=== PATIENT | female | born 1965 | race African-American/Black ===

== ENCOUNTER 2019-04-24 08:00 | Inpatient (IN) | payer OTHER ==
[2019-05-19] MEDS ORDERED: PHENAZOPYRIDINE HCL 100 MG TABLET (FP) PO ONE ×2 (08:08)
[2019-05-19 10:12] VITALS: BMI 30.7
--- NOTE | 2019-05-19 11:01 | HP ---
History & Physical Update - History History: No Change - Physical Physical: No Change - Assessment Assessment: No Change - Plan Plan: No Change
[2019-05-19] MEDS ORDERED: CEFAZOLIN 2 GM/D5W 2 GM/50 ML ML IVPB ONE (11:02)
[2019-05-19] MEDS ORDERED: ceFAZolin SODIUM 1 GM VIAL IVPB ONE (11:55)
[2019-05-19] MEDS ORDERED: FLU VACCINE QUAD 60 MCG/0.5 ML (MDV 19-20) IM ONE (12:00)
[2019-05-19] MEDS ORDERED: ONDANSETRON 4 MG/2 ML VIAL IVPUSH PRN ×2 (13:50→13:58)
[2019-05-19] MEDS ORDERED: BISACODYL 5 MG TABLET.DR (FP) PO ONE (13:50)
[2019-05-19] MEDS ORDERED: ACETAMINOPHEN 1000 MG/100 ML VIAL (NON FORMULARY) IVPB ONE ×2 (13:55→14:00)
[2019-05-19] MEDS ORDERED: DEXAMETHASONE SOD PHOSPHATE 4 MG/1 ML VIAL IVPUSH ONE (13:58)
[2019-05-19] MEDS ORDERED: HYDROmorphone *PCA* 10MG/50ML DISP.SYRIN PCA SCH (14:00)
--- NOTE | 2019-05-19 14:01 | OP ---
Operative Note - Note: Operative Date: 05/19/19 Pre-Operative Diagnosis: leiomyoma Operation: open abdpminal hysterectomy and bilateral salpingectomy 05/19 Surgeon: Ruma Martinez Clinical Trials Specialist: Kristel Jha Anesthesiologist/TRANSMISSION CALIBRATION ENGINEER: Brooklynn Bojorquez MD Anesthesia: General Specimens Removed: uterus with cervix and bilateral salpingnx Estimated Blood Loss (mls): 200 Drains, Volume Out (mls): 225 (mayo) Fluid Volume Replaced (mls): 1,000 Operative Report Dictated: Yes
--- NOTE | 2019-05-19 14:26 | OP ---
Operative Note - Note: Operative Date: 05/19/19 Pre-Operative Diagnosis: Leiomyomaatous Uterus. Adenomyosis. Subserosal myoma Operation: Total Abdominal Hysterectomy. Bilateral Salpingectomy Findings: 23 cm leiomyomatous uterus with adenomyosis Post-Operative Diagnosis: Same as Pre-op Surgeon: Ruma Martinez Station Engineer: Kristel Jha Anesthesia: General Estimated Blood Loss (mls): 150 Operative Report Dictated: Yes
[2019-05-19] MEDS ORDERED: HYDROmorphone *PCA* 10MG/50ML DISP.SYRIN PCA ONE (14:40)
[2019-05-19] MEDS ORDERED: ALBUTEROL SO4 0.083% IH SOL 2.5 MG/3 ML VIAL.NEB. NEB ONE ×2 (15:00→15:01)
--- NOTE | 2019-05-19 17:26 | OP ---
DATE OF OPERATION: 05/19/2019 PREOPERATIVE DIAGNOSIS: Leiomyomatous uterus, adenomyosis, submucosal myoma. OPERATION: Total abdominal hysterectomy and bilateral salpingectomy. POSTOPERATIVE DIAGNOSIS: Leiomyomatous uterus, adenomyosis, submucosal myoma. SURGEON: Ruma Martinez MD AUTOMATED PROCESS OPERATOR: MARIA LUZ Resendiz ANESTHESIA: General. FINDINGS: Uterus approximately 23-24 weeks in size with multiple myomas and adenomyosis. ESTIMATED BLOOD LOSS: 150 mL. DESCRIPTION OF PROCEDURE: Patient was taken to the operating room, placed in the supine position, prepped and draped in the usual sterile fashion. Time-out was performed in accordance with hospital regulation. Pfannenstiel skin incision was made with the scalpel. Cautery was then used to go through layers of abdominal wall to the level of the fascia. Fascia was cut in the midline, and cautery was then used to open the fascia in smiling fashion. Kochers were then used to bluntly, sharply dissect the rectus muscle off the fascia. Muscle was split in the midline. Peritoneal cavity was then entered. Very large leiomyomatous uterus approximately 22-23 weeks in size was exteriorized from the abdomen. Tubes and ovaries were noted to be normal. Attention was then drawn to the LigaSure where the utero-ovarian ligament was identified and clamped and cut. Round ligament was identified and clamped and cut all on the left side. Vesicouterine reflection was then entered, and bladder was bluntly dissected out of the operative field. Uterine arteries were identified and clamped and cut. Using LigaSure, cardinal ligaments were identified, clamped, and cut down to the level of the cervix. The vagina was then entered using a scalpel. Same procedure was repeated on the other side. Round ligament was identified and clamped and cut. Utero-ovarian ligament was identified and clamped and cut. Uterine artery identified, clamped, and cut. Cardinal ligament was identified, clamped, and cut down to the level of the cervix. The Zee were then used to cut the vagina away from the cervix, 2-0 V-Lock suture was then used to close the vaginal cuff in a continuous fashion. The specimen was submitted to Pathology. Bilateral tubes were removed using LigaSure and given to Pathology. All pedicles were checked. A small piece of Interceed was placed over the cuff. Hemostasis was achieved. Peritoneum was then closed using 2-0 Vicryl suture after pad count was noted to be done, abdominal sweep done. Fascia was then closed using 0 Vicryl suture in 2 parts. Muscles had been approximated in the midline using 0 Vicryl suture. Subcutaneous was then closed with interrupted using 2-0 Vicryl suture, and 3-0 Biosyn was then used to close the incision in subcuticular fashion. Wound was washed and dressed. Patient tolerated procedure well. Estimated blood loss 150 mL. Madhavi [id number]
[2019-05-19 19:47] LABS: HEMOGLOBIN 10.4 GM/dL (10.7-15.3); MCH 22.9 pg (25.7-33.7); MCHC 30.7 g/dl (32.0-36.0); MEAN CELL VOLUME 74.6 fl (80-96); MEAN PLT VOLUME 8.8 fl (7.5-11.1); PLATELET COUNT 180 K/MM3 (134-434); RBC 4.56 M/mm3 (3.60-5.2); RDW 31.4 % (11.6-15.6); WHITE BLOOD COUNT 20.1 K/mm3 (4.0-10.0)
[2019-05-19] MEDS: ACETAMINOPHEN 1000 MG/100 ML VIAL (NON FORMULARY) IVPB SCH (20:00)
[2019-05-19 20:12] LABS: BLOOD UREA NITROGEN 13.5 mg/dL (7-18); CALCIUM 9.2 mg/dL (8.5-10.1); CREATININE 0.8 mg/dL (0.55-1.3); POTASSIUM 3.5 mmol/L (3.5-5.1)
[2019-05-19] MEDS: CEFAZOLIN 1 GM in DEXTROSE 5%-WATER - 50 ML IVPB SCH (21:00)
[2019-05-19 21:52] LABS: ANISOCYTOSIS 2+
[2019-05-19 21:53] LABS: OVALOCYTE 1+; PLATELET ESTIMATE ADEQUATE; TARGET CELLS 1+
[2019-05-19] MEDS ORDERED: IBUPROFEN 800 MG/8 ML IJ IVPB PRN (22:00)
[2019-05-20] MEDS: ACETAMINOPHEN 1000 MG/100 ML VIAL (NON FORMULARY) IVPB SCH ×2 (02:00→06:03)
[2019-05-20] MEDS: CEFAZOLIN 1 GM in DEXTROSE 5%-WATER - 50 ML IVPB SCH (03:00)
--- NOTE | 2019-05-20 08:19 | PN ---
Progress Note (short form) - Note Progress Note: Surgery POD #1 open abdpminal hysterectomy and bilateral salpingectomy patient seen and examined at bedside. She has not been OOB yet and the mayo catheter is still in. Her pain is controlled and she denies any CP, SOB, N/V, Fever or chills. Vital Signs Temp 98.5 F 05/20/ 05:36 Pulse 67 05/20/19 05:36 Resp 18 05/20/19 05:36 BP 144/75 05/20/19 05:36 Pulse Ox 96 05/19/19 21:00 Intake & Output 05/19/19 05/19/19 05/20/19 11:59 23:59 11:59 Intake Total 1398 487 6713 Output Total 1675 800 Balance 1000 -1125 975 Weight 176 lb Intake: IV 1236 576 9462 Lactated Ringers Solution 1125 1,000 ml @ 125 mls/hr IV ASDIR DORCAS Rx#: [id number] IVPB 50 150 Oral 250 500 Output: Urine 1475 800 Mayo 200 800 Estimated Blood Loss 200 Other: Voiding Method Indwelling Catheter Height 5 ft 3.5 in Body Mass Index (BMI) 30.7 Weight Measurement Method Stated by Patient CBC, BMP 05/20/19 07:43 05/20/19 07:43 PE: A&Ox3, NAD Unlabored resp on RA ABD: Soft, ND, NT, Incision C/D/I with seri strips, surrounding tissue intact with no tracking erythema or active d/c. Problem List - Problems (1) S/P hysterectomy Assessment/Plan: POD #1 patient doing well. WBC's trending down and afebrile. -remove mayo now -advance diet as ordered -OOB as tolerated -AM labs -encourage IS -DVT prophylaxis with b/l scds and lovenox -d/c planning for home tomorrow Code(s): Z90.710 - ACQUIRED ABSENCE OF BOTH CERVIX AND UTERUS (2) S/P abdominal hysterectomy and left salpingo-oophorectomy Code(s): Z90.710 - ACQUIRED ABSENCE OF BOTH CERVIX AND UTERUS; Z90.721 - ACQUIRED ABSENCE OF OVARIES, UNILATERAL; Z90.79 - ACQUIRED ABSENCE OF OTHER GENITAL ORGAN(S) (3) S/P abdominal hysterectomy and right salpingo-oophorectomy Code(s): Z90.710 - ACQUIRED ABSENCE OF BOTH CERVIX AND UTERUS; Z90.721 - ACQUIRED ABSENCE OF OVARIES, UNILATERAL; Z90.79 - ACQUIRED ABSENCE OF OTHER GENITAL ORGAN(S)
[2019-05-20 08:26] LABS: BLOOD UREA NITROGEN 11.1 mg/dL (7-18); CALCIUM 8.5 mg/dL (8.5-10.1); CREATININE 0.8 mg/dL (0.55-1.3)
[2019-05-20 08:42] LABS: HEMATOCRIT 29.6 % (32.4-45.2); HEMOGLOBIN 9.4 GM/dL (10.7-15.3); MCH 23.3 pg (25.7-33.7); MCHC 31.6 g/dl (32.0-36.0); MEAN CELL VOLUME 73.7 fl (80-96); MEAN PLT VOLUME 8.9 fl (7.5-11.1); PLATELET COUNT 142 K/MM3 (134-434); RBC 4.02 M/mm3 (3.60-5.2); RDW 31.4 % (11.6-15.6); WHITE BLOOD COUNT 16.6 K/mm3 (4.0-10.0)
--- NOTE | 2019-05-20 08:57 | PN ---
Progress Note (short form) - Note Progress Note: Anesthesia postop note 54 y/o F s/p GA for HARPREET, TAP blocks and chemical etch operator for postop pain management. POD#1, vss, aaox3, pain well controlled, no complaints. Will continue the chemical etch operator for now. No anesthesia complications.
[2019-05-20] MEDS ORDERED: FLU VACC QS2019-20(6MOS UP)/PF 60 MCG/0.5 ML SYRINGE IM ONE (09:00)
[2019-05-20] MEDS: HYDROCHLOROTHIAZIDE 25 MG TABLET (FP) PO SCH (09:35)
[2019-05-20] MEDS: NEBIVOLOL 10 MG TABLET (FP) PO SCH (09:35)
[2019-05-20] MEDS ORDERED: FLU VACCINE QUAD 60 MCG/0.5 ML (MDV 19-20) IM ONE (10:00)
[2019-05-20] MEDS ORDERED: PATIENT'S OWN MEDICATION (NON-FORMULARY) (Azilsartan Medoxomil [Edarbi] 80 MG) PO SCH (10:00)
[2019-05-20] MEDS: ENOXAPARIN NA (PORCINE) 40 MG/0.4 ML DISP.SYRIN SQ SCH (10:23)
--- NOTE | 2019-05-20 10:27 | SURG ---
Surgery Cutting Machine Tender Note Cutting Machine Tender: Kristel Jha PA-C Date of Service: 05/20/19 Diagnosis: leiomyoma Procedure: open abdpminal hysterectomy and bilateral salpingectomy 05/19 I was present for the entirety of the operative procedure. For further detail, please refer to operative report. Visit type - Case Type Case Type: Scheduled - Emergency Emergency Visit: No - New patient This patient is new to me today: Yes Date on this admission: 05/19/19
[2019-05-20] MEDS ORDERED: PCA PUMP KEY 1 EACH EACH ONE (13:37)
[2019-05-20] MEDS ORDERED: oxyCODONE HCL 5 MG TABLET PO PRN (16:18)
[2019-05-20] MEDS: SIMETHICONE 80 MG TAB.CHEW (FP) PO PRN (19:45)
[2019-05-20] MEDS: oxyCODONE HCL 5 MG TABLET PO PRN (19:45)
[2019-05-20] MEDS: ACETAMINOPHEN 325 MG TABLET (FP) PO PRN (19:46)
[2019-05-21] MEDS: SIMETHICONE 80 MG TAB.CHEW (FP) PO PRN ×4 (00:11→21:28)
[2019-05-21] MEDS: ACETAMINOPHEN 325 MG TABLET (FP) PO PRN ×5 (00:11→21:27)
[2019-05-21] MEDS: oxyCODONE HCL 5 MG TABLET PO PRN ×5 (00:12→21:28)
[2019-05-21] MEDS: DOCUSATE SODIUM 100 MG CAPSULE (FP) PO PRN (06:21)
--- NOTE | 2019-05-21 09:32 | PN ---
Progress Note (short form) - Note Progress Note: POD#2 Pt states that she passed flatus overnight, tolerated a regular diet. Ambulating and voiding on her own. Scant vaginal bleeding. Some pain overnight which was relieved with narcotics. Vital Signs Period Temp Pulse Resp BP Sys/Banks Pulse Ox Last 24 Hr 98.1 F-99 F 64-69 18-20 112-137/56-70 GEN: A&0x3, NAD CV; RRR Lungs: CTA b/l ABD: Binder in place, inc c/d/i with steristrips. No drainage or erythema noted. LE: no calf tenderness or swelling noted b/l CBC, BMP 11/12/19 07:43 11/12/ 07:43 A/P: 54 yo female s/p open abdominal hysterectomy and bilateral salpingectomy Continue regular diet OOB and ambulate DVT ppx with SCDS/ TEDS check cbc today Plan for possible discharge today, if hhaving bowel function. D/w Dr. Martinez
[2019-05-21] MEDS: NEBIVOLOL 10 MG TABLET (FP) PO SCH (09:59)
[2019-05-21] MEDS: HYDROCHLOROTHIAZIDE 25 MG TABLET (FP) PO SCH (09:59)
[2019-05-21] MEDS: ENOXAPARIN NA (PORCINE) 40 MG/0.4 ML DISP.SYRIN SQ SCH (10:00)
[2019-05-21] MEDS ORDERED: oxyCODONE HCL 5 MG TABLET PO ONE (10:45)
[2019-05-21 11:01] LABS: BASO % 0.6 % (0-2.0); EOS % 1.5 % (0-4.5); HEMATOCRIT 30.3 % (32.4-45.2); HEMOGLOBIN 9.5 GM/dL (10.7-15.3); LYMPH % 7.6 % (8-40); MCH 23.5 pg (25.7-33.7); MCHC 31.4 g/dl (32.0-36.0); MEAN CELL VOLUME 74.7 fl (80-96); MEAN PLT VOLUME 8.7 fl (7.5-11.1); NEUT % 84.3 % (42.8-82.8); PLATELET COUNT 146 K/MM3 (134-434); RBC 4.05 M/mm3 (3.60-5.2); RDW 30.8 % (11.6-15.6); WHITE BLOOD COUNT 12.7 K/mm3 (4.0-10.0)
[2019-05-21] MEDS: LACTATED RINGERS SOLUTION 1,000 ML IV SCH (19:32)
[2019-05-21] MEDS: SODIUM CHLORIDE 1,000 ML IV SCH ×2 (19:35→19:40)
[2019-05-21] MEDS: ACETAMINOPHEN 1000 MG/100 ML VIAL (NON FORMULARY) IVPB SCH ×2 (19:38→19:40)
--- NOTE | 2019-05-22 00:39 | PN ---
Progress Note (short form) - Note Progress Note: Anesthesia/pain management follow up REPAIRER AND CHECKER was discontinued, patient doing well.
[2019-05-22] MEDS: oxyCODONE HCL 5 MG TABLET PO PRN ×2 (05:30→14:43)
[2019-05-22] MEDS: SIMETHICONE 80 MG TAB.CHEW (FP) PO PRN ×2 (05:30→15:08)
[2019-05-22] MEDS: ACETAMINOPHEN 325 MG TABLET (FP) PO PRN ×2 (05:31→14:45)
--- NOTE | 2019-05-22 07:46 | DS ---
Physical Exam: SUBJECTIVE: Patient seen and examined OBJECTIVE: Vital Signs Temperature 98.4 F 05/21/19 20:50 Pulse Rate 67 05/21/19 20:50 Respiratory Rate 20 05/21/19 20:50 Blood Pressure 139/72 05/21/19 20:50 O2 Sat by Pulse Oximetry (%) 96 05/19/19 21:00 PHYSICAL EXAM GENERAL: The patient is awake, alert, and fully oriented, in no acute distress. HEAD: Normal with no signs of trauma. EYES: PERRL, extraocular movements intact, sclera anicteric, conjunctiva clear. ENT: Ears normal, nares patent, oropharynx clear without exudates, moist mucous membranes. NECK: Trachea midline, full range of motion, supple. LUNGS: Breathing comfortably no accessory muscle use. ABDOMEN: Soft, mild lower abd tenderness, nondistended, no guarding, no rebound , no hepatosplenomegaly, no masses. EXTREMITIES: warm, well-perfused, no edema. NEUROLOGICAL: Cranial nerves II through XII grossly intact. Normal speech, gait not observed. PSYCH: Normal mood, normal affect. SKIN: Warm, dry, normal turgor, no rashes or lesions noted. LABS CBC,CMP WBC 12.7 K/mm3 (4.0-10.0) H 05/21/19 10:35 RBC 4.05 M/mm3 (3.60-5.2) 05/21/19 10:35 Hgb 9.5 GM/dL (10.7-15.3) L 05/21/19 10:35 Hct 30.3 % (32.4-45.2) L 05/21/19 10:35 MCV 74.7 fl (80-96) L 05/21/19 10:35 MCH 23.5 pg (25.7-33.7) L 05/21/19 10:35 MCHC 31.4 g/dl (32.0-36.0) L 05/21/19 10:35 RDW 30.8 % (11.6-15.6) H 05/21/19 10:35 Plt Count 146 K/MM3 (134-434) 05/21/19 10:35 MPV 8.7 fl (7.5-11.1) 05/21/19 10:35 Absolute Neuts (auto) 10.7 K/mm3 (1.5-8.0) H 05/21/19 10:35 Neutrophils % 84.3 % (42.8-82.8) H 05/21/19 10:35 Neutrophils % (Manual) 78.0 % (42.8-82.8) 05/19/19 19:30 Band Neutrophils % 2.0 % 05/19/19 19:30 Lymphocytes % 7.6 % (8-40) L 05/21/19 10:35 Lymphocytes % (Manual) 13.0 % (8-40) 05/19/19 19:30 Monocytes % 6.0 % (3.8-10.2) 05/21/19 10:35 Monocytes % (Manual) 7 % (3.8-10.2) 05/19/19 19:30 Eosinophils % 1.5 % (0-4.5) 05/21/19 10:35 Basophils % 0.6 % (0-2.0) 05/21/19 10:35 Nucleated RBC % 0 % (0-0) 05/21/19 10:35 Hypochromia 2+ 05/19/19 19:30 Platelet Estimate Adequate 05/19/19 19:30 Anisocytosis 2+ 05/19/19 19:30 Microcytosis 2+ 05/19/19 19:30 Target Cells 1+ 05/19/19 19:30 Ovalocytes 1+ 05/19/19 19:30 Sodium 137 mmol/L (136-145) 05/20/19 07:43 Potassium 4.0 mmol/L (3.5-5.1) 05/20/19 07:43 Chloride 103 mmol/L (98-107) 05/20/19 07:43 Carbon Dioxide 30 mmol/L (21-32) 05/20/19 07:43 Anion Gap 4 MMOL/L (8-16) L 05/20/19 07:43 BUN 11.1 mg/dL (7-18) 05/20/19 07:43 Creatinine 0.8 mg/dL (0.55-1.3) 05/20/19 07:43 Est GFR (CKD-EPI)AfAm 95.52 05/20/19 07:43 Est GFR (CKD-EPI)NonAf 82.42 05/20/19 07:43 Random Glucose 97 mg/dL (74-106) 05/20/19 07:43 Calcium 8.5 mg/dL (8.5-10.1) 05/20/19 07:43 HOSPITAL COURSE: Date of Admission:05/19/19 Date of Discharge: 05/22/19 The patient was admitted to the Med-Surg Unit after an elective repair of her leiomyomas/pelvic pain. Now, s/p open abdominal hysterectomy. Pain management was achieved with a narcotic and non-narcotic oral and IV regimen. POD #1, the patient passed flatus and diet was advanced. Hemoglobin and hematocrit were monitored as well as vitals and remained stable throughout admission. Jennifer-operative IV ABX were administered. DVT prophylaxis was achieved with Lovenox 40mg qd, SCDs and early ambulation. The patient ambulated the halls without issue. Narcotic scripts were checked with [facility] prior to escribe. The discharge instructions and an oral pain management plan were reviewed with the patient. All questions answered. Above plan discussed with Dr. Martinez and agreed. Minutes to complete discharge: 20 Visit type - Case Type Case Type: Scheduled - Emergency Emergency Visit: No - New patient This patient is new to me today: No - Critical Care Critical Care patient: No
[2019-05-22] MEDS ORDERED: OXYTOCIN 30 UNITS in 0.9% NS 30 UNIT/500 ML INFUS.BAG IVPB SCH (08:30)
[2019-05-22] MEDS: HYDROCHLOROTHIAZIDE 25 MG TABLET (FP) PO SCH (10:28)
[2019-05-22] MEDS: ENOXAPARIN NA (PORCINE) 40 MG/0.4 ML DISP.SYRIN SQ SCH (10:28)
[2019-05-22] MEDS: NEBIVOLOL 10 MG TABLET (FP) PO SCH (10:28)
[2019-05-22 12:05] VITALS: BP 136/71; PULSE 60; TEMP 98.5
--- NOTE | 2019-05-22 14:39 | PN ---
Progress Note (SOAP) - Subjective Chief Complaint: Pt doing well + flatus no vaginal bleeding - Current Medications Current Medications: Active Medications Acetaminophen (Tylenol -) 650 mg PO Q6H PRN PRN Reason: PAIN LEVEL 1 - 3 Last Admin: 05/22/19 05:31 Dose: 650 mg Docusate Sodium (Colace -) 100 mg PO TID PRN PRN Reason: CONSTIPATION Last Admin: 05/21/19 06:21 Dose: 100 mg Enoxaparin Sodium (Lovenox -) 40 mg SQ DAILY [facility] Last Admin: 05/22/19 10:28 Dose: 40 mg Hydrochlorothiazide (Hctz -) 25 mg PO DAILY [facility] Last Admin: 05/22/19 10:28 Dose: 25 mg Nebivolol (Bystolic -) 10 mg PO DAILY [facility] Last Admin: 05/22/19 10:28 Dose: 10 mg Non-Formulary Medication (Azilsartan Medoxomil [Edarbi]) 80 mg PO DAILY [facility] Oxycodone HCl (Roxicodone -) 5 mg PO Q6H PRN PRN Reason: PAIN LEVEL 1-5 Last Admin: 05/22/19 05:30 Dose: 5 mg Oxycodone HCl (Roxicodone -) 10 mg PO Q6H PRN PRN Reason: PAIN LEVEL 6-10 Simethicone (Mylicon -) 80 mg PO Q4H PRN PRN Reason: GAS Last Admin: 05/22/19 05:30 Dose: 80 mg - Objective Vital Signs: Vital Signs Temperature 98.5 F 05/22/19 08:30 Pulse Rate 60 05/22/19 08:30 Respiratory Rate 18 05/22/19 08:30 Blood Pressure 136/71 05/22/19 08:30 O2 Sat by Pulse Oximetry (%) 96 05/19/19 21:00 Constitutional: Yes: Well Nourished Gastrointestinal: Yes: WNL, Soft Breast(s): Yes: WNL Musculoskeletal: Yes: WNL Extremities: Yes: WNL Edema: No Wound/Incision: Yes: Clean/Dry, Well Approximated, Steri Strips, Open to air Neurological: Yes: WNL, Alert, Oriented Labs Lab Results: CBC, BMP 05/21/19 10:35 05/20/19 07:43 Problem List - Problems (1) S/P abdominal hysterectomy and left salpingo-oophorectomy Code(s): Z90.710 - ACQUIRED ABSENCE OF BOTH CERVIX AND UTERUS; Z90.721 - ACQUIRED ABSENCE OF OVARIES, UNILATERAL; Z90.79 - ACQUIRED ABSENCE OF OTHER GENITAL ORGAN(S) Assessment/Plan Sp HARPREET bilateral salpingectomy POD3 doing well Plan DC home
[2019-05-22] MEDS: DOCUSATE SODIUM 100 MG CAPSULE (FP) PO PRN (14:43)
--- NOTE | 2019-05-23 17:55 | PATH ---
Surgical Pathology Report Patient Name: KARLY PHELPS [facility]. Rec. #: [id number] /Age/Gender: 1965 (Age: 54) / F Account: [id number] Location: [facility] Taken: 05/19/2019 Received: 05/20/2019 Reported: 05/23/2019 Physicians: Ruma Martinez M.D. Specimen(s) Received A: UTERUS, CERVIX, LEFT FALLOPIAN TUBE B: FIBROID C: RIGHT FALLOPIAN TUBE Clinical History Leiomyoma of uterus Final Diagnosis A. UTERUS, CERVIX, LEFT FALLOPIAN TUBE, TOTAL ABDOMINAL HYSTERECTOMY AND SALPINGECTOMY: 2908 G UTERUS. LEIOMYOMA(TA), INTRAMURAL, SUBSEROSAL, WITH FOCAL DYSTROPHIC CALCIFICATION. PROLIFERATIVE ENDOMETRIUM. MYOMETRIUM WITH ADENOMYOSIS. CERVIX WITHOUT SIGNIFICANT PATHOLOGIC FINDINGS. FALLOPIAN TUBE WITHOUT SIGNIFICANT PATHOLOGIC FINDINGS (INCLUDING FULL LUMINAL PORTION AND FIMBRIATED END). INTRAUTERINE DEVICE (IUD). MACROSCOPIC DIAGNOSIS. B. FIBROID, MYOMECTOMY: 55 G, LEIOMYOMA. C. FALLOPIAN TUBE, RIGHT, SALPINGECTOMY: FALLOPIAN TUBE WITH PARATUBAL CYST (INCLUDING FULL LUMINAL PORTION AND FIMBRIATED END). Electronically Signed Shona Henderson M.D. Gross Description A. Received in formalin labeled "uterus, cervix and left fallopian tube," is a 2908 g supracervically amputated uterus with an attached left fallopian tube. The cervix is separately received within the same container. The specimen measures 18 cm from anterior to posterior, 17.5 cm from superior to inferior, and 15.5 cm from left to right. The serosa is gonzalez-pink with abundant bulging subserosal nodules as well as a 1.3 cm in greatest dimension calcified focus. The endometrial cavity measures 15 cm in length and 7.5 cm from cornu to cornu. There is an IUD present within the cavity. The endometrium is gonzalez-red and averages 0.2 cm in thickness. The myometrium displays abundant large intramural nodules, measuring up to 9 cm in greatest dimension. The cut surface of the nodules is gonzalez, firm to rubbery and displays whorled architecture. No areas of hemorrhage or necrosis are identified. The remaining myometrium is gonzalez noriega and averages 7.5 cm in thickness. The separately received, unoriented cervix measures 2 cm in length and averages 3 cm in diameter. The ectocervix is gonzalez, smooth and glistening. The endocervix is unremarkable. The attached left fallopian tube measures 6 cm in length. The outer surface is noriega purple and smooth. Sectioning reveals an unremarkable lumen. Computer Education Professor sections are submitted in 18 cassettes as follows: 8-4-zhjppyumhigdil cervix; 5-9-swwwovgm endomyometrium; 0-3-ufjnzdhjb endomyometrium; 7-calcified serosal nodule, following decalcification; 8-5-qeficxgbri subserosal nodules; 58-09-qbtngah intramural nodules; 93-42-jppmgdrodt intramural nodules; 17-left fallopian tube fimbria; 18-cross sections of left fallopian tube. B. Received in formalin labeled "fibroid," is a 55 g, 4.8 x 4.5 x 4.0 cm rubbery nodule, consistent with a fibroid. Sectioning reveals gonzalez, rubbery parenchyma with whorled architecture. No areas of hemorrhage or necrosis are identified. Computer Education Professor sections are submitted in 3 cassettes. C. Received in formalin labeled "right fallopian tube," is a 6 cm in length fimbriated fallopian tube. The outer surface is noriega purple and smooth. Sectioning reveals an unremarkable lumen. Computer Education Professor sections are submitted in 2 cassettes as follows: 1-fimbria; 2-cross sections of fallopian tube. 05/21/2019 [facility]05/21/2019
--- NOTE | 2019-05-26 21:05 | DS ---
"Physical Exam-CHIEF SCIENTIST Vital Signs: Vital Signs Temperature 98.5 F 05/22/19 08:30 Pulse Rate 60 05/22/19 08:30 Respiratory Rate 18 05/22/19 08:30 Blood Pressure 136/71 05/22/19 08:30 O2 Sat by Pulse Oximetry (%) 96 05/19/19 21:00 Constitutional: Yes: Well Nourished, No Distress Gastrointestinal: Yes: WNL, Soft Musculoskeletal: Yes: WNL Extremities: Yes: WNL Wound/Incision: Yes: Clean/Dry, Well Approximated, Steri Strips Psychiatric: Yes: WNL, Alert, Oriented Labs: CBC, BMP 05/21/19 10:35 05/20/19 07:43 Discharge Summary Problems reviewed: Yes Reason For Visit: LEIOMYOMA OF THE UTERUS Hypertension Procedures: Principal: Total Abdominal hysterectomy. Bilateral salpingectomy Hospital Course: unremarkable Condition: Good - Instructions Diet, Activity, Other Instructions: Dr. Ruma Martinez Benefit Authorizer discharge instructions Physical activity Resume your normal everyday activity as tolerated no heavy lifting or exercise until seen by your surgeon. You may walk unlimited sriram of and climb stairs. You may resume driving the car when you feel safe and comfortable behind the wheel. No sexual activity as instructed by Dr. Martinez. Wound care If you have a bandage, leave it on, and keep dry for 72 hours.. If they are tapes on the skin leave them in place. They will peel off in the next 7 to 10 days. Do Not Peel them off. You may shower the 3 days after surgery but do not submerge the incision. If there are tapes present on the skin, you may shower over them. Do not apply lotion or ointments to incision. Diet There are no dietary restrictions. Eat healthy, high-fiber foods. Drink 6 to 8 glasses of liquid each day. This will assist in keeping your bowels are regular. Pain management You may take Tylenol or acetaminophen or Ibuprofen (for example, Motrin, Advil etc.) from my pain prescription medication is ordered should be taken as prescribed for moderate to severe pain. Do not drive, drink alcohol or operate heavy machinery while taking narcotic pain medications. Call Dr. Martinez for any of the following: Severe pain not relieved by medication Fever of 101 or higher Excessive bleeding or drainage on dressing Inability to urinate ISTOP: This report was requested by: Jo Hopkins | Reference #: [id number] Call the office at [phone] for an appointment in seven days. Disposition: HOME - Home Medications Comprehensive Discharge Medication List: Ambulatory Orders Azilsartan Medoxomil [Edarbi] 80 mg PO DAILY 05/19/19 Corvite Fe Tablet 1 tablet PO DAILY 05/19/19 Hydrochlorothiazide [Hctz -] 25 mg PO DAILY 05/19/19 Nebivolol [Bystolic -] 10 mg PO DAILY 05/19/19 Oxycodone HCl/Acetaminophen [Percocet 5-325 mg Tablet] 1 - 2 tab PO Q4H PRN #20 tablet MDD 12 05/20/19 Docusate Sodium [Colace -] 100 mg PO BID PRN #10 capsule 05/21/19"
== END 2019-05-22 16:43 | disposition home or self-care (01) | DRG 743 ==
LOC: EDSTATUS 08:00 → JSAMEDAYSX 05-19 08:36 → J3W 05-19 16:35
PROVIDERS: ADMIT Obstetrics & Gynecology; ATTEND Obstetrics & Gynecology
PROC: 0UT70ZZ Resection of Bilateral Fallopian Tubes, Open Approach (ICD-10-PCS; 2019-05-19)
PROC: 0UT90ZZ Resection of Uterus, Open Approach (ICD-10-PCS; principal; 2019-05-19 11:53)
DX: D25.0 Submucous leiomyoma of uterus (principal); D25.1 Intramural leiomyoma of uterus; I10 Essential (primary) hypertension; N80.0 Endometriosis of uterus
CPT/HCPCS: 36415; 80048; 81025; 85025; 85027; 86850; 86900; 86901; 88302-TC; 88305-TC; 88307-TC; 90686; 94010; 94760; J0131